=== PATIENT | female | born 1955 | race Caucasian/White ===

== ENCOUNTER 2017-03-09 09:24 | Inpatient (IN) | payer MEDICARE, MEDICAID ==
[~2017-03-09] VITALS: Ht 154.9 cm; Wt 65.6 kg
--- OUTSIDE RECORDS SUMMARY | ~2017-03-09 | XMS | Clinical Summary ---
Demographics + + + | Address | [address] | | | [place] [address] | + + + | Home Phone | | + + + | Preferred Language | Unknown | + + + | Marital Status | | + + + | Rastafari Affiliation | Unknown | + + + | Race | White | + + + | Ethnic Group | Not or | + + + Author + + + | Author | [facility] | + + + | Organization | [facility] | + + + | Address | Unknown | + + + | Phone | Unavailable | + + + Support +------+ +---------+ + | Name | Relationship | Address | Phone | +------+ +---------+ + ECON | Unknown | | +------+ +---------+ + Care Team Providers + +------+-------+ | Care Grocery Department Manager Name | Role | Phone | + +------+-------+ | Dipak Rabago MD | PP | tel | + +------+-------+ Source Comments SARAHY is fully live on both [facility] and [facility]Patient.[facility] Allergies No Known Allergies Current Medications + + +---------+---------+------+------+-------+ | Prescription | Sig. | Disp. | Refills | Star | End | Statu | | | | | | t | Date | s | | | | | | Date | | | + + +---------+---------+------+------+-------+ | estradiol 2 mg | Take 2 mg by mouth | | | | | Activ | | Oral Tablet | once daily. | | | | | e | + + +---------+---------+------+------+-------+ | FLUoxetine 20 mg | Take 20 mg by mouth | | | | | Activ | | Oral | once daily. | | | | | e | | TabletIndications: | Indications: | | | | | | | depression | Depression | | | | | | + + +---------+---------+------+------+-------+ | furosemide 40 mg | Take 40 mg by mouth | | | | | Activ | | Oral Tablet | once daily. | | | | | e | + + +---------+---------+------+------+-------+ | lisinopril 20 mg | Take 20 mg by mouth | | | | | Activ | | Oral | once daily. | | | | | e | | TabletIndications: | Indications: | | | | | | | hypertension | Hypertension | | | | | | + + +---------+---------+------+------+-------+ | pravastatin 20 mg | Take 20 mg by mouth | | | | | Activ | | Oral Tablet | once daily at | | | | | e | | | bedtime. | | | | | | + + +---------+---------+------+------+-------+ | traZODone 100 mg | Take 100 mg by mouth | | | | | Activ | | Oral | once daily at | | | | | e | | TabletIndications: | bedtime. | | | | | | | Insomnia | Indications: | | | | | | | | Insomnia | | | | | | + + +---------+---------+------+------+-------+ | oxyCODONE, | Take 5 mg by mouth | | | | | Activ | | immediate release, 5 | every six hours as | | | | | e | | mg Oral | needed. | | | | | | | TabletIndications: | Indications: Pain | | | | | | | Pain | | | | | | | + + +---------+---------+------+------+-------+ | carvedilol 6.25 mg | Take 6.25 mg by | | | | | Activ | | Oral Tablet | mouth two times | | | | | e | | | daily. Administer | | | | | | | | with food. | | | | | | + + +---------+---------+------+------+-------+ | FLAXSEED OIL | Take 2,000 mg by | | | | | Activ | | (OMEGA 3 ORAL) | mouth once daily. | | | | | e | + + +---------+---------+------+------+-------+ | niacin ER | Take 500 mg by mouth | | | | | Activ | | (SLO-NIACIN) 500 mg | once daily at | | | | | e | | Oral Tablet Extended | bedtime. | | | | | | | Release 24 hr | | | | | | | + + +---------+---------+------+------+-------+ | VITAMIN B COMPLEX | Take 2,000 mg by | | | | | Activ | | (B-COMPLEX W/B-12 | mouth once daily. | | | | | e | | OR) | | | | | | | + + +---------+---------+------+------+-------+ | diazepam 2 mg Oral | Take 1 tablet by | 1 Tab | 0 | 02/2 | | Activ | | Tablet | mouth before MRI | | | 8/20 | | e | | | | | | 12 | | | + + +---------+---------+------+------+-------+ Active Problems + + + | Problem | Noted Date | + + + | Lumbago | 05/04/2011 | + + + | Lumbosacral spondylosis without myelopathy | 05/04/2011 | + + + Family History + + +------+ + | Medical History | Relation | Name | Comments | + + +------+ + | Cancer | Father | | | + + +------+ + | Cancer | Grandmoth | | | | | er | | | + + +------+ + | Cancer | Maternal | | | | | Grandmoth | | | | | er | | | + + +------+ + | Cancer | Mother | | | + + +------+ + + +------+ + + | Relation | Name | Status | Comments | + +------+ + + | Father | | Alive | | + +------+ + + | Grandmother | | | | + +------+ + + | Maternal Grandmother | | | | + +------+ + + | Mother | | | | + +------+ + + Social History + +-------+ +--------+------+ | Tobacco Use | Types | Packs/Day | Years | Date | | | | | Used | | + +-------+ +--------+------+ | Former Smoker | | | | | + +-------+ +--------+------+ + +---+---+ + | Smokeless Tobacco: | | | Quit: | | Former User | | | 05/04/19 | | | | | 05 | + +---+---+ + + + +---------+ + | Alcohol Use | Drinks/We | oz/Week | Comments | | | ek | | | + + +---------+ + | Yes | 3 | 1.5 | drinks socially | | | Standard | | | | | drinks or | | | | | | | | | | equivalen | | | | | t | | | + + +---------+ + + + + | Sex Assigned at | Date Recorded | | | | + + + | Not on file | | + + + Last Filed Vital Signs + + + + | Vital Sign | Reading | Time Taken | + + + + | Blood Pressure | 132/93 | 05/04/2011 1:06 PM PST | + + + + | Pulse | 75 | 05/04/2011 1:06 PM PST | + + + + | Temperature | 36.7 C (98 F) | 05/04/2011 1:06 PM PST | + + + + | Respiratory Rate | - | - | + + + + | Oxygen Saturation | - | - | + + + + | Inhaled Oxygen | - | - | | Concentration | | | + + + + | Weight | 67.6 kg (149 lb) | 05/04/2011 1:06 PM PST | + + + + | Height | 154.9 cm (5' 1") | 05/04/2011 1:06 PM PST | + + + + | Body Mass Index | 28.15 | 05/04/2011 1:06 PM PST | + + + + Plan of Treatment + + + + + | Health Maintenance | Due Date | Last Done | Comments | + + + + + | INFLUENZA VACCINE | | | | | (FLU SHOT) | 7 | | | + + + + + Results Not on filefrom Last 3 Months
--- OUTSIDE RECORDS SUMMARY | ~2017-03-09 | XMS | Clinical Summary ---
Demographics + + + | Address | [address] | | | [place] [address] | + + + | Home Phone | | + + + | Preferred Language | Unknown | + + + | Marital Status | | + + + | Latter-Day Affiliation | Unknown | + + + | Race | White | + + + | Ethnic Group | Not or | + + + Author + + + | Author | [facility] | + + + | Organization | [facility] | + + + | Address | Unknown | + + + | Phone | Unavailable | + + + Support +------+ +---------+ + | Name | Relationship | Address | Phone | +------+ +---------+ + ECON | Unknown | | +------+ +---------+ + Care Team Providers + +------+-------+ | Care Pediatric Surgeon Name | Role | Phone | + +------+-------+ | Dipak Rabago MD | PP | tel | + +------+-------+ Source Comments SARAHY is fully live on both [facility] and [facility] InPatient.[facility] Allergies No Known Allergies Current Medications [...]
[2017-03-09] MEDS ORDERED: FUROSEMIDE40 MG PO (09:47)
[2017-03-09] MEDS ORDERED: LISINOPRIL40 MG PO (09:47)
[2017-03-09] MEDS ORDERED: ESTRADIOL2 MG PO (09:47)
[2017-03-09] MEDS ORDERED: AMLODIPINE BESYL5 MG PO (09:47)
[2017-03-09] MEDS ORDERED: CARVEDILOL12.5 MG PO (09:47)
[2017-03-09] MEDS ORDERED: TRAZODONE HCL100 MG PO (09:48)
[2017-03-09] MEDS ORDERED: ZITHROMAX250 MG PO (10:58)
--- NOTE | 2017-03-09 13:40 | NUR ---
PT RESTING IN BED AWAKE, ALERT AND ORIENTED. REPORTS MILD PAIN WITH DEEP BREATH, AND SOME SOB. REPORTS ONLY OCC DRY COUGH. PT SATTING 96% ON RA. NO EDEMA NOTED. IV INFUSING WNL. ORIENTED TO ROOM, EDUCATION COMPELTED. CALL LIGHT WITHIN REACH.
[2017-03-09] MEDS ORDERED: FLUOXETINE HCL40 MG PO (16:13)
--- NOTE | 2017-03-09 16:16 | NUR ---
Medications reconciled by pharmacist using pharmacy fill records and patient interview.
--- NOTE | 2017-03-09 16:30 | NUR ---
PT RESTING QUIETLY IN BED, EYES CLOSED, RESP EVEN AND UNLABORED.
--- NOTE | 2017-03-09 17:33 | NUR ---
PATIENT SITTING UP IN BED EATING DINNER NO OTHER NEEDS AT THIS TIME.
--- NOTE | 2017-03-09 18:14 | NUR ---
PT SITTING UP IN BED WATCHING TV. ATE SOME DINNER, DANIEL WELL SO FAR. SATTING 94% ON RA. CALL LIGHT WITHIN REACH.
--- NOTE | 2017-03-09 18:46 | NUR ---
PATIENT UP TO BATHROOM WITH STANDBY ASSIST.
--- NOTE | 2017-03-09 19:27 | NUR ---
RECEIVED REPORT FROM RN. PATIENT IS RESTING COMFORTABLY IN BED, BREATHING IS EVEN AND UNLABORED. O2 SATURATION IS 92% ON ROOM AIR, PULSE IS 78. DENIES NEEDS AT THIS TIME. CALL LIGHT WITHIN REACH.
--- NOTE | 2017-03-09 20:09 | NUR ---
PATIENT RESTING COMFORTABLY IN BED, BREATHING IS EVEN AND UNLABORED. DENIES NEEDS AT THIS TIME. ASSESSMENT DONE, BLOOD SUGAR DONE. 02 SATURATION IS 93% ON RA. CALL LIGHT WITHIN REACH.
--- NOTE | 2017-03-09 20:12 | NUR ---
VITALS AND I&OS DONE. FRESH WATER GIVEN. CALL LIGHT AND BEDSIDE TABLE WITHIN REACH. PT NEEDS NOTHING AT THIS TIME.
--- NOTE | 2017-03-10 00:47 | NUR ---
PATIENT RESTING COMFORTABLY IN BED, BREATHING IS EVEN AND UNLABORED. O2 SATURATION IS 91% ON ROOM AIR. DENIES NEEDS AT THIS TIME. CALL LIGHT WITHIN REACH.
--- NOTE | 2017-03-10 02:01 | NUR ---
VITALS AND I&OS DONE. HELPED HER TO THE BATHROOM, AND BACK TO HER BED. PER HER REQUEST I GOT HER A SECOND PILLOW. ASKED IF SHE NEEDED ANYTHING ELSE AT THIS TIME. SHE SAID NO. CALL LIGHT ON HER BED NEXT TO HER AND BEDSIDE TABLE WITHIN REACH.
--- NOTE | 2017-03-10 03:13 | NUR ---
PATIENT SITTING ON EDGE OF BED, BREATHING EVEN AND UNLABORED. O2 SATURATION IS 92% ON ROOM AIR. PATIENT REPORTS 8/10 PAIN IN LOWER BACK. PRN TYLENOL GIVEN PER EMAR, GAVE PATIENT HEAT PACK. DENIES FURTHER NEEDS. ASSESSMENT DONE. CALL LIGHT WITHIN REACH.
--- NOTE | 2017-03-10 05:26 | NUR ---
PATIENT RESTING COMFORTABLY IN BED, BREATHING IS EVEN AND UNLABORED. O2 SATURATOIN IS 92% ON ROOM AIR, PULSE IS 88. FLACC SCORE OF 0. CALL LIGHT WITHIN REACH.
--- NOTE | 2017-03-10 05:29 | NUR ---
PATIENT'S NIGHT WAS UNEVENTFUL. SHE HAS BEEN RESTING COMFORTABLY IN BED THROUGHOUT SHIFT. VSS, URINE OUTPUT QS. COMPLAINED OF BACK PAIN EARLIER, RELIEVED BY TYLENOL AND HEAT PACK. ALERT AND ORIENTED X3, HAS CRACKLES IN BASES OF LUNGS BILATERALLY, MAINTAINS O2 SATURATION >90% ON ROOM AIR. PATIENT IS INDEPENDENT IN ROOM, HAS IV FLUIDS RUNNING. NO ACUTE CHANGES FROM BEGINNING OF SHIFT.
--- NOTE | 2017-03-10 06:39 | NUR ---
RECEIVED CALL FROM LAB REPORTING CRITICAL LAB VALUE OF 10 FOR CO2.
--- NOTE | 2017-03-10 06:40 | NUR ---
DR. FAUST NOTIFIED ABOUT CRITICAL LAB VALUE OF 10 FOR CO2. NO NEW ORDERS AT THIS TIME.
--- NOTE | 2017-03-10 07:55 | NUR ---
PATIENT REFUSED INFLUENZA VACCINE THIS AM, MEDICATION GIVEN AND MEDICAL STUDENT IN TO SEE THE PATIENT. VITALS TAKEN AND BREAKFAST GIVEN TO HER AT THIS TIME. PATIENT DENIES ANY SOB OR PAIN.
--- NOTE | 2017-03-10 08:58 | NUR ---
PATIENT ASSISTED UP TO THE BATHROOM TO VOID, PATIENT VOIDED 450 MLS OF CLEAR YELLOW URINE. SHE IS STEADY ON HER FEET JUST NEEDED ASSISTANCE WITH HER EQUIPMENT.
--- NOTE | 2017-03-10 09:30 | NUR ---
PATIENT ASSISTED TO THE BR. BREAKFAST TRAY TAKEN OUT OF ROOM. PATIENT STATING NO OTHER NEEDS AT THIS TIME.
--- NOTE | 2017-03-10 09:37 | NUR ---
PATIENT ASSISTED UP TO THE BATHROOM AGAIN, PATIENT VOIDED 500 MLS OF CLEAR YELLOW URINE AND HAD A SMALL LOOSE BM.
--- NOTE | 2017-03-10 09:50 | NUR ---
PATIENT SAID NO ON SHOWER BUT YES ON A BED BATH.
--- NOTE | 2017-03-10 10:24 | NUR ---
DOCTOR FAUST IN THE ROOM TO SEE THE PATIENT AT THIS TIME
--- NOTE | 2017-03-10 10:51 | NUR ---
PATIENT ASSISTED BACK TO BED FROM THE BATHROOM, SHE REMAINS STEADY ON HER FEET, URINE IS CLEAR YELLOW AND SHE HAD A SMALL LOOSE BM. PATIENT IS ON RA WITH NO C/O SOB WITH AMBULATION. SHE IS GOING TO TAKE A BED BATH LATER AND DENIES OTHER NEEDS AT THIS TIME
--- NOTE | 2017-03-10 11:50 | NUR ---
REPORT RECEIVED FROM CAT, ASSUMING PATIENT CARE AT THIS TIME. INTRODUCE SELF TO PATIENT. PATIENT RESTING IN BED, HAD NO COMPLAINTS AT THIS TIME.
--- NOTE | 2017-03-10 14:24 | NUR ---
PT LAYING IN BED, FRIENDLY, ALERT AND ORIENTED. WILL LET HER REST, AND CHECK IN ON PT AGAIN
--- NOTE | 2017-03-10 14:36 | NUR ---
IN TO PATIENT ROOM FOR SECOND ASSESSMENT. LUNGS ARE DIM AND TIGHT IN THE BASES. PATIENT REPORTS MILD SOB, DIFFICULTY CATCHING HER BREATH. RT IN ROOM TO GIVE PRN NEB TX. WILL CONTINUE TO MONIOR.
--- NOTE | 2017-03-10 16:18 | NUR ---
PATIENT REQUESTED TYLENOL FOR HEADACH. PATIENT WAS MEDICATED. RESTING IN BED AT THIS TIME.
--- NOTE | 2017-03-10 18:22 | NUR ---
PATIENT HAD A FAIR DAY. HAD NEB TX ONCE. SOB WITH EXERTION. PATIENT HAD MULTIPLE LIQUID STOOLS. VOID Q/S. POOR APPETITE. IV SITE PATENT ANF FLUID (D51/2NS +20K) INFUSING @ 75ML/HR. LUNGS STILL COARSE AND DIM IN THE BASES. PATIENT IS ON RA AND CONT PULSE OX.
--- NOTE | 2017-03-10 20:33 | NUR ---
patient resting comfortably in bed, breathing is even and unlabored. O2 saturation is 93% on room air, pulse is 92. denies needs at this time. medications given, assessment done. call light within reach.
--- NOTE | 2017-03-10 21:08 | NUR ---
VITALS AND I&OS DONE. GOT PT MORE ICE FOR HER DRINK. AND FILLED HER WATER. PT NEEDS NOTHING ELSE AT THIS TIME. CALL LIGHT AND BEDSIDE TABLE WITHIN REACH.
--- NOTE | 2017-03-10 22:19 | NUR ---
WENT INTO PTS ROOM TO PLUG BACK IN HER PULSE OX AND IV. PT NEEDS NOTHING ELSE AT THIS TIME.
--- NOTE | 2017-03-11 00:30 | NUR ---
PATIENT SITTING ON EDGE OF BED, BREATHING IS EVEN AND UNLABORED. O2 SATURATION IS 93% ON ROOM AIR. REPORTS 6/10 PAIN IN LOWER BACK, PRN TYLENOL GIVEN. DENIES FURTHER NEEDS AT THIS TIME. CALL LIGHT WITHIN REACH.
--- NOTE | 2017-03-11 01:59 | NUR ---
PATIENT RESTING COMFORTABLY IN BED, BREATHING EVEN AND UNLABORED. O2 SATURATIONS IS 92% ON ROOM AIR. CALL LIGHT WITHIN REACH.
--- NOTE | 2017-03-11 04:15 | NUR ---
PATIENT RESTING COMFORTABLY IN BED, BREATHING IS EVEN AND UNLABORED. O2 SATURATION IS 94% ON ROOM AIR. DENIES NEEDS AT THIS TIME. ASSESSMENT DONE, CALL LIGHT WITHIN REACH.
--- NOTE | 2017-03-11 06:01 | NUR ---
pt up to brp, was shaky, diaphoretic, cbg done 284. primary RN Víctor to be notified, no other s/sx of high blood sugars noted, pt alert and oriented, good , stable gait
--- NOTE | 2017-03-11 06:13 | NUR ---
PATIENT ASSISTED TO BATHROOM. WHILE AMBULATING, PATIENT BECOMES SHORT OF BREATH. ONCE BACK IN BED, BREATHING QUICKLY BECOMES UNLABORED. O2 SATURATION IS 93% ON ROOM AIR, PULSE IS 99. DENIES NEEDS AT THIS TIME. PATIENT STATES "I FEEL FINE." CALL LIGHT WITHIN REACH.
--- NOTE | 2017-03-11 07:21 | NUR ---
BEDSIDE REPORT RECEIVED FROM JEREMY. PATIENT ASLEEP DURING REPORT. RR EVEN/UNLABORED, HR 80-85 AND 02 SAT 96% ON RA. NO APPARENT DISTRESS.
--- NOTE | 2017-03-11 09:10 | NUR ---
ASSISTED PATIENT TO SIT AT BEDSIDE. BREAKFAST TRAY SET UP. PATIENT REPORT NO PAIN, SOB OR NAUSEA. STILL HAVE POOR APPETITE. MED STUDENT IN ROOM. PATIENT EXPRESSED INTEREST TO GO HOME TODAY. COUGH HAS DECREASED. SHIFT ASSESSMENT COMPLETED. LUNGS DIM IN THE BASES. PATIENT REPORT TENDERNESS ON THE UPPER EPIGASTRIC REGION. PATIENT SITTING IN BED AT THIS TIME EATING BREAKFAST. CALL LIGHT AND PERSONAL BELONGING WITHIN REACH.
--- NOTE | 2017-03-11 11:37 | NUR ---
PATIENT UP AMBULATING IN THE HALLWAY WITH PHYSICAL THERAPIST.
--- NOTE | 2017-03-11 11:59 | NUR ---
PATIENT SITTING AT BEDSIDE EATING LUNCH. PATIENT DENIES PAIN. TOLERATED AMBULATION WELL EXCEPT THAT PATIENT REPORTED THAT SHE WAS HAVE A LITTLE BIT OF HARD TIME CATCHING HER BREATH. PATIENT IS IN NO DISTRESS, O2 SAT @ 92% TO 95% ON RA. WILL CONTINUE TO MONITOR
[2017-03-11] MEDS ORDERED: LEVOFLOXACIN750 MG PO (14:41)
[2017-03-11] MEDS ORDERED: SODIUM BICARBO650 MG PO (14:43)
--- NOTE | 2017-03-11 22:39 | EKG ---
[facility] [address] [place] [address] Signed Normal sinus rhythm Cannot rule out Anterior infarct , age undetermined Abnormal ECG No previous ECGs available Confirmed by JOANNE SHELTON MD ([id number]) on 03/11/2017 10:39:06 PM Electronically Signed By: JOANNE SHELTON MD 03/11/17 2239 PATIENT NAME: CHEIKH BLACKOLIVIA FALCON Electrocardiogram DATE OF : 55 PHYSICIAN: JOANNE SHELTON MD REPORT #: [id number] REPORT IS CONFIDENTIAL AND NOT TO BE RELEASED WITHOUT AUTHORIZATION
== END 2017-03-11 15:20 | disposition home or self-care (01) | DRG 194 ==
LOC: ED 09:24 → MS 12:42
PROVIDERS: ADMIT Internal Medicine
DX: J13 Pneumonia due to Streptococcus pneumoniae (principal); E87.2 Acidosis; R19.7 Diarrhea, unspecified; I11.0 Hypertensive heart disease with heart failure; I50.9 Heart failure, unspecified; K76.0 Fatty (change of) liver, not elsewhere classified; F39 Unspecified mood [affective] disorder; Z87.891 Personal history of nicotine dependence; Z88.0 Allergy status to penicillin; Z79.890 Hormone replacement therapy; Z79.899 Other long term (current) drug therapy
CPT/HCPCS: 36415; 36600; 71046; 80048; 80053; 80069; 80176; 81001; 82010; 82803; 83605; 83735; 83880; 84100; 84484; 85025; 87040; 87502; 93005; 93010; 94640; 97161; G0480; J0456; J0696; J1650; J1956; J2405; J2550; J3480; J7030

== ENCOUNTER 2020-10-22 11:01 | Day surgery (SDC) | payer MEDICARE, MEDICAID ==
[~2020-10-22] VITALS: Ht 154.9 cm; Wt 56.8 kg
[~2020-10-22 11:01] MED LIST: AMLODIPINE BESYL5 MG PO; CARVEDILOL12.5 MG PO; ESTRADIOL2 MG PO; FLUOXETINE HCL40 MG PO; FUROSEMIDE40 MG PO; LEVOFLOXACIN750 MG PO; LISINOPRIL40 MG PO; SODIUM BICARBO650 MG PO; TRAZODONE HCL100 MG PO; ZITHROMAX250 MG PO
[2020-10-22] MEDS ORDERED: MULTIVITAMIN1 EACH PO (11:31)
[2020-10-22] MEDS ORDERED: PRESERVISION A1 EAC3 PO (11:32)
[2020-10-22] MEDS ORDERED: PROAIR HFA8.5 GM INH (11:32)
[2020-10-22] MEDS ORDERED: ZESTRIL40 MG PO (11:33)
[2020-10-22] MEDS ORDERED: FUROSEMIDE40 MG PO (11:34)
[2020-10-22] MEDS ORDERED: FLUOXETINE HCL40 MG PO (11:34)
[2020-10-22] MEDS ORDERED: CARVEDILOL12.5 MG PO (11:35)
[2020-10-22] MEDS ORDERED: NORVASC5 MG PO (11:35)
[2020-10-22] MEDS ORDERED: XANAX0.5 MG PO (11:37)
[2020-10-22] MEDS ORDERED: OZEMPIC1 MG/0.75 SUB-Q (11:49)
--- NOTE | 2020-10-22 13:15 | NUR ---
10/22/20 1315 [address] 1222 PT ARRIVED TO PACU ON 3L VIA NC. PT PRONE AND DENIES CONERNS. VSS. PLAN OF CARE DISCUSSED. [id number] PT ROLLED TO BACK AND SIPPING JUICE PER REQUEST, DC INSTRUCTIONS GIVEN AND PT GETTING DRESSED. FRIEND CALLED FOR RIDE HOME. PAPERWORK GIVEN AND VSS.
--- NOTE | 2020-11-05 09:14 | PATH ---
[facility] [address] [place], [place] [address] Signed THIS IS AN ADDENDUM REPORT SPECIMEN(S): A BONE MARROW - CORE SPECIMEN(S): B BONE MARROW - ASPIRATION SPECIMEN(S): C FLOW CYTOMETRY, BM EDTA ASP CLINICAL HISTORY: Chronic leukocytosis and thrombocytosis. D47.1 (chronic myeloproliferative disease) DIAGNOSIS SUMMARY: A. Peripheral blood - Mild leukocytosis and thrombocythemia. - No circulating blasts identified. B. Bone marrow aspiration and biopsy: - Normocellular marrow, 40%, with less than 1% blasts. - Trilineage hematopoiesis with no significant dyspoiesis. - No malignancy identified. - Increased marrow iron stores. No ring sideroblasts are identified. - Focal reticulin fibrosis, grade 0-1+. - See Diagnostic Comment. DIAGNOSTIC COMMENT: The patient's history of mild leukocytosis and thrombocythemia is noted. Overall, based on morphology, a reactive process is favored. No myeloproliferative neoplasm is identified by morphology. Because of the history of chronic leukocytosis and thrombocythemia, tests for BCR/ABL1 and JAK2 (with exon 12 reflex) as well as chromosome analysis are requested, and the results will be reported in an addendum. If clinically desired, tests for CALR and MPL can be requested. Reactive etiologies for leukocytosis and mild thrombocythemia should be excluded, such as drug effect, chronic infection, liver disorder, autoimmune or splenomegaly. JLP:C2NR HISTORICAL SUMMARY: 65-year-old with no prior hematologic history in [facility]. Patient has a reported history of mild unexplained leukopenia and thrombocythemia since 2016. 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 This bone marrow is to evaluate these findings. PATIENT NAME: OLIVIA DAMON PATHOLOGY DATE OF : 55 REPORT #: [id number] PHYSICIAN: STEPHANIE PATHOLOGY PCP: JOSE MELGAR PA-C REPORT IS CONFIDENTIAL AND NOT TO BE RELEASED WITHOUT AUTHORIZATION [facility] [address] [place], [place] [address] Signed PERIPHERAL BLOOD: HEMOGRAM (10/22/2020): WBC 13.4 K/ul, RBC 4.44 M/ul, HGB 13.1 g/dl, HCT 40.1%, MCV 90.2 fl, MCH 29.5 pg, MCHC 32.7 g/dl, RDW 14.6%, PLT 453 K/ul, MPV 8.1 fl. AUTOMATED DIFFERENTIAL COUNT: Neutrophils 60.4%, lymphocytes 28.5%, monocytes 5.8%, eosinophils 4.5%, basophils 0.8%. The red blood cells are normocytic and normochromic with minimal anisopoikilocytosis. The neutrophils are unremarkable. Lymphocytes are composed of small mature appearing forms. Platelets appear mildly increased in number with no platelet clumping or RBC microangiopathic effect identified. No blasts are identified. BONE MARROW: ASPIRATE SMEARS/TOUCH IMPRINT: The aspirate smears are adequate for evaluation. Scattered erythroid precursors show adequate maturation with essentially normal morphology. The myeloid precursors show full maturation with unremarkable morphology. There is no increase in blasts. Megakaryocytes are identified with a normal morphology. BONE MARROW DIFFERENTIAL COUNT (300 cells): Blasts less than 1%, promyelocytes 2%, myelocytes 3%, metamyelocytes/bands/segs 48%, erythroid precursors 32%, lymphocytes 9%, monocytes 3%, eosinophils 3%, plasma cells less than 1%. M:E ratio: 1.8:1 BONE MARROW CORE BIOPSY/ASPIRATE CLOT/CELL BLOCK: The aspirate clot section and the core biopsy are adequate for evaluation. The core biopsy demonstrates unremarkable trabecular bone. The cellularity is normal for age, estimated at 40%. The erythroid precursors are within normal limits with essentially unremarkable maturation. The myeloid precursors are unremarkable with no significant dyspoiesis. Blasts are not increased. Megakaryocytes appear normal in number and in morphology. No granulomas, atypical lymphoid aggregates or foreign malignant cells are detected. SPECIAL STAINS (with adequate controls): - iron (aspirate smear): Increased marrow iron stores by Prussian Blue stain. No ring sideroblasts are identified. - iron (aspirate clot): Positive for iron - reticulin (block A1): Focal reticulin fibrosis, grade 0-1+ FLOW CYTOMETRY: Bone marrow, flow cytometry: - No abnormal diagnostic populations are identified by flow cytometry. - See Comment. PATIENT NAME: OLIVIA DAMON PATHOLOGY DATE OF : 55 REPORT #: [id number] PHYSICIAN: STEPHANIE PATHOLOGY PCP: JOSE MELGAR PA-C REPORT IS CONFIDENTIAL AND NOT TO BE RELEASED WITHOUT AUTHORIZATION [facility] [address] [place] [id number] Signed COMMENT: The majority of the gated lymphocytes are T-cells with a normal marking pattern. The B-cells are unremarkable with no light chain restriction or aberrant marking. Blasts are not increased. No aberrant marking is detected in the myeloid or monocyte gate areas. Plasma cells are not increased. Correlation with histologic findings is suggested to exclude disorders that can have normal flow cytometry findings. FLOW CYTOMETRY ANALYSIS: FLOW DIFFERENTIAL (% Total CD45 vs. SSC gating): Myeloid 71%; Lymphoid 18%; Monocyte 3%; Dim CD45/Blast: 1.6%. Cell Count: 1.0 x 10*3/uL. POPULATION ANALYSIS: BLASTS: Analysis of the dim CD45 gate demonstrates 1.6% myeloblasts by CD34/CD117. LYMPHOID CELLS: The lymphocyte gate comprises 18% of total events and includes 90% T-cells with a CD4:CD8 ratio of 1.2:1 and normal brown T-cell antigen expression. 6% of lymphocytes are polyclonal B-cells with a kappa:lambda ratio of 1.5:1. The remainders are NK-cells. MYELOID CELLS: The myeloid population comprises 71% of the total events. No aberrant or immature immunophenotypic expression is detected. MONOCYTES: The monocyte population comprises 3% of the total events. Monocytes are not increased. No aberrant immunophenotypic expression is detected. PLASMA CELLS: 0.4% plasma cells are detected in the screening gate neg-dimCD45/CD38. Plasma cells are CD45 dim and positive for CD19. ANTIBODIES USED: KAPPA, LAMBDA, CD20, CD10, CD19, CD23, CD38, FMC7, CD16, CD56, CD8, CD5, CD2, CD4, CD7, CD3, CD14, CD33, CD13, HLADR, CD34, CD117, CD15, CD45: TOTAL ANTIBODIES USED: 24. TCS FINAL DIAGNOSIS PERFORMED BY: Arnol Watts MD, Oct 23 2020 11:35AM CYTOGENETICS: Chromosome analysis is pending and the results will be reported in an addendum. FISH ANALYSIS: A FISH probe for BCR/ABL1 is pending and the results will be reported in an addendum. MOLECULAR / PCR: A molecular test for ROMAN 2 with ROMAN 2 exon reflex testing is pending and PATIENT NAME: OLIVIA DAMON PATHOLOGY DATE OF : 55 REPORT #: [id number] PHYSICIAN: STEPHANIE PATHOLOGY PCP: JOSE MELGAR PA-C REPORT IS CONFIDENTIAL AND NOT TO BE RELEASED WITHOUT AUTHORIZATION [facility] [address] [place], [place] [address] Signed the results will be reported in an addendum. GROSS DESCRIPTION: Two specimens are received in two containers, labeled "LN." A. The specimen, labeled "LN, core," is received in formalin and consists of one cylindrical bone core fragment measuring 0.2 in diameter and 2.2 in length. The specimen is entirely submitted in cassette A1 following decalcification in Immunocal. B. The specimen, labeled "LN clot," is received in formalin and consists of thickened clot material measuring 2.0 x 1.7 x 0.6 in aggregate. The specimen is filtered and entirely submitted in cassette B1. Bone marrow inventory also includes: Two peripheral smears, one EDTA tube bone marrow, and two heparin tubes. AT (under the direct supervision of a pathologist) The Gross Description was prepared using a voice recognition system. The report was reviewed for accuracy; however, sound-alike word errors, addition and/or deletions may occur. If there is any question about this report, please contact Client Services. ADDITIONAL NOTES: This test was developed and its performance characteristics determined by [facility]. It has not been cleared or approved by the US Food and Drug Administration. The FDA does not require this test to go through premarket FDA review. This test is used for clinical purposes. It should not be regarded as investigational or for research. This laboratory is certified under the Clinical Laboratory Improvement Amendments (CLIA) as qualified to perform high complexity clinical laboratory testing. PERFORMING LABORATORY: The technical component was performed by [facility], [address] [place] [address] (Correctional Corporal: Itz Weiss D.O.; CLIA#: [id number]). Professional interpretation [place] [address]. The technical component was performed by [facility], [address] [place] [address] (Correctional Corporal: Romelia Monk MD; CLIA# [id number]). Professional interpretation [place] [address]. IMAGES: PATIENT NAME: OLIVIA DAMON PATHOLOGY DATE OF : 55 REPORT #: [id number] PHYSICIAN: STEPHANIE DE SOUZA PCP: JOSE MELGAR PA-C REPORT IS CONFIDENTIAL AND NOT TO BE RELEASED WITHOUT AUTHORIZATION [address] [address] Signed A: [id number] A: [id number] SPECIMEN SOURCE: A. FISH Analysis, BCR/ABL FISH, BM EDTA CLINICAL HISTORY: Chronic leukocytosis and thrombocytosis. D47.1 (chronic myeloproliferative disease) FISH (fluorescence in situ hybridization) RESULT: Not Detected INTERPRETATION: BCR/ABL1 t(9;22) rearrangement: Not detected. Fluorescence in situ hybridization (FISH) analysis was performed using a tricolor, dual fusion BCR/ABL1 probe set used to detect the(9;22) translocation associated with CML and less commonly ALL or AML. The tri color probe set also detects derivative chromosome 9 deletions. All probe signals were within the normal reference range. This represents a NORMAL result. This analysis is limited to abnormalities detectable by the specific probes includes in the study. FISH should be interpreted within the context of a full cytogenetic analysis and hematologic evaluation. ISCN: Probe Set Detail: BCR/ABL1/ASS1 t(9;22): nuc óscar 9q34(ASS1, ABL1)x2,22q11.2(BCRx2)[200] References: [place] of Genetics and Cytogenetics in Oncology and Hematology [email or web address]/ FISH Analysis Summary: Nuclei Scored: 200 Scoring Method: Manual; CPT Code 08372 Number of Probe units: 1 Multiplex Cells analyzed: Interphase Probe sets: Chrom 9: ABL1, Chrom 9: ASS1, Chrom 22: BCR ADDITIONAL NOTES: This test was developed and its performance characteristics determined by [facility] It has not been cleared or approved by the US Food and Drug Administration. The [employer] DNA probe vendor for this study was [employer]. PATIENT NAME: OLIVIA DAMON PATHOLOGY DATE OF : 55 REPORT #: [id number] PHYSICIAN: STEPHANIE PATHOLOGY PCP: JOSE MELGAR PA-C REPORT IS CONFIDENTIAL AND NOT TO BE RELEASED WITHOUT AUTHORIZATION [facility] [address] [facility] [place], [place] [address] Signed PERFORMING LABORATORY: The technical component of the FISH testing was performed by [facility], [address] [address] (Correctional Corporal: Itz Weiss D.O.; CLIA#: [id number]). Professional interpretation was performed by [facility], [place] [address] (Correctional Corporal: Itz Weiss D.O.; CLIA#: [id number]). FINAL DIAGNOSIS PERFORMED BY: Shaji Cruz MD, Pathologist Oct 27 2020 4:40PM REASON FOR ADDENDUM: To add results of additional testing. To add results of additional testing. Bone marrow aspirate, JCK2 V617F mutation analysis - Qualitative: Results: JAK2 V617F Mutation: Not Detected Clinical Significance: The JAK2 V617F mutation has been reported in >80% of the patients with polycythemia vera (PV), 30-50% of patients with either essential thrombocythemia (ET) or primary myelofibrosis (PMF). This mutation is not detected in normal individuals. A small subset of patients with myeloproliferative neoplasms (MPN) that are negative for the JAK2 V617F mutation will harbor JAK2 mutations in exon 12. More rare mutations are detected in exons 13 and 14. JAK2 mutations can be used to differentiate reactive conditions from neoplastic process. Methodology: Total nucleic acid was extracted from patient's plasma or PB/BM cells. The primer pair was designed to encompass the JAK2 V617F point mutation located in chromosome 9p24. The PCR product was then purified and sequenced in both forward and reverse directions using high-sensitivity [place] sequencing which improves the lower detection limit to approximately 1% mutated DNA in a wild-type background. The resulting sequence was compared to GenBank Acc# [id number] sequence. Various factors including quantity and quality of nucleic acid, sample preparation and sample age can affect assay performance. References: 1. Khai Muñiz et al. A unique clonal JAK2 mutation leading to constitutive signaling causes polycythaemia vera. Nature. 2005; 434:1144-8. 2. Floresita Salas et al. A ufhz-dr-kohyhgly mutation of JAK2 in myeloproliferative disorders. N Engl J Med. 2005; 352:1779-90. PATIENT NAME: OLIVIA DAMON PATHOLOGY DATE OF : 55 REPORT #: [id number] PHYSICIAN: STEPHANIE PATHOLOGY PCP: JOSE MELGAR PA-C REPORT IS CONFIDENTIAL AND NOT TO BE RELEASED WITHOUT AUTHORIZATION [address] [address] Signed 3. Isai MAURER, Stephanie E, Tyrel P, et al; MPD Research Consortium. Prospective identification of high-risk polycythemia vera patients based on JAK2(V617F) allele burden. Leukemia. 2007;21(9):1952-9. PMID: [id number]. Test/Panel: JAK2 V617F Mutation Analysis - Qualitative MolDX/AMA CPT: 33577; 17467 The Technical Component Processing, Analysis and Professional Component of this test was completed at [facility], [address] [place] [address], [place], [place] / [address] / [phone] / BARBER #[id number] / Correctional Corporal(s): Corona Mcnulty M.D. (Accession/CaseNo: [id number]) The performance characteristics of this test have been determined by [facility]. This test has not been approved by the FDA. The FDA has determined such clearance or approval is not necessary. This laboratory is CLIA certified to perform high complexity clinical testing. Images that may be included within this report are passenger relations representative of the patient but not all testing in its entirety and should not be used to render a result. The CPT codes provided with our test descriptions are based on MolDX and AMA guidelines and are for informational purposes only. Correct CPT coding is the sole responsibility of the billing constitution party. Please direct any questions regarding coding to the payer being billed To add results of additional testing. Bone marrow aspirate, chromosome analysis: Karyotype: 46,XX[20] Interpretation: NORMAL FEMALE KARYOTYPE Cytogenetic analysis shows a normal female karyotype in all cells analyzed. Recommendation: This result should be interpreted in conjunction with other concurrent FISH, immunophenotypic, molecular and clinical findings. Periodic monitoring by flow, cytogenetics, FISH and molecular studies is recommended. Comments: Standard cytogenetic analysis may not detect subtle submicroscopic rearrangements and may not include metaphases from abnormal cell populations with low mitotic rates or present in low levels. Test Detail: Metaphases Counted: 20 PATIENT NAME: OLIVIA DAMON PATHOLOGY DATE OF : 55 REPORT #: [id number] PHYSICIAN: STEPHANIE PATHOLOGY PCP: JOSE MELGAR PA-C REPORT IS CONFIDENTIAL AND NOT TO BE RELEASED WITHOUT AUTHORIZATION [facility] [address] [place], [place] [address] Signed Metaphases Analyzed: 20 Metaphases Karyotyped: 2 Culture Type: 48EB Banding Technique: GTG Banding Resolution: 400 CPT Codes: 96621, 16977*, 624[address] *Professional interpretation service generally billed directly to carriers by [facility]. The Technical Component Processing, Analysis and Professional Component of this test was completed at [facility], [address] [place] [address], [place] / [address] / [phone] / CLIA #[id number] / Correctional Corporal(s): Corona Mcnulty M.D. (Accession/CaseNo: [id number]) The performance characteristics of this test have been determined by the performing laboratory. This test has not been approved by the FDA. The FDA has determined such clearance or approval is not necessary. This laboratory is CLIA certified to perform high complexity clinical testing. Images that may be included within this report are passenger relations representative of the patient but not all testing in its entirety and should not be used to render a result. The CPT codes provided with our test descriptions are based on AMA guidelines and are for informational purposes only. Correct CPT coding is the sole responsibility of the billing constitution party. Please direct any questions regarding coding to the payer being billed. Diagnostician: Shaji Cruz MD Pathologist Diagnostician: Arnol Watts MD Pathologist Electronically Signed 11/05/2020 Copies: ~ PATIENT NAME: OLIVIA DAMON PATHOLOGY DATE OF : 55 REPORT #: [id number] PHYSICIAN: STEPHANIE DE SOUZA PCP: JOSE MELGAR PA-C REPORT IS CONFIDENTIAL AND NOT TO BE RELEASED WITHOUT AUTHORIZATION
== END 2020-10-22 12:54 | disposition home or self-care (01) ==
LOC: OPS 11:01 → DS 11:02 → OPS 12:00
PROVIDERS: ATTEND Specialist
PROC: 07DR3ZX Extraction of Iliac Bone Marrow, Percutaneous Approach, Diagnostic (ICD-10-PCS; principal; 2020-10-22 12:00)
DX: D47.1 Chronic myeloproliferative disease (principal); I13.0 Hypertensive heart and chronic kidney disease with heart failure and stage 1 through stage 4 chronic kidney disease, or unspecified chronic kidney disease; E11.22 Type 2 diabetes mellitus with diabetic chronic kidney disease; N18.31 Chronic kidney disease, stage 3a; N18.32 Chronic kidney disease, stage 3b; I50.9 Heart failure, unspecified; E78.1 Pure hyperglyceridemia; E24.9 Cushing's syndrome, unspecified; Z87.891 Personal history of nicotine dependence
CPT/HCPCS: 88184; 88185; 88305; 88311; 88313; 88377; G0500; J2250; J3010; J7121

== ENCOUNTER 2021-01-23 15:12 | Emergency (ER) | payer MEDICARE ==
[~2021-01-23] VITALS: Ht 154.9 cm; Wt 56.7 kg
[~2021-01-23 15:12] MED LIST changes: +MULTIVITAMIN1 EACH PO; +NORVASC5 MG PO; +OZEMPIC1 MG/0.75 SUB-Q; +PRESERVISION A1 EAC3 PO; +PROAIR HFA8.5 GM INH; +XANAX0.5 MG PO; +ZESTRIL40 MG PO
[2021-01-23] MEDS ORDERED: ZITHROMAX250 MG PO (19:41)
--- NOTE | 2021-01-24 15:01 | EKG ---
[facility] [address] [facility] [place] [address] Signed Normal sinus rhythm Nonspecific ST and T wave abnormality Abnormal ECG When compared with ECG of 09-MAR-2017 09:32, ST no longer depressed in Anterior leads Nonspecific T wave abnormality now evident in Anterior leads Confirmed by JOANNE SHELTON MD ([id number]) on 01/24/2021 3:00:52 PM Electronically Signed By: JOANNE SHELTON MD 01/24/21 1501 PATIENT NAME: OLIVIA DAMON Electrocardiogram DATE OF : 55 PHYSICIAN: JOANNE SHELTON MD REPORT #: [id number] REPORT IS CONFIDENTIAL AND NOT TO BE RELEASED WITHOUT AUTHORIZATION
== END 2021-01-23 19:54 | disposition home or self-care (01) ==
LOC: ED 15:12
DX: J20.9 Acute bronchitis, unspecified (principal); I11.0 Hypertensive heart disease with heart failure; I50.9 Heart failure, unspecified; Z87.440 Personal history of urinary (tract) infections; Z87.442 Personal history of urinary calculi; Z87.891 Personal history of nicotine dependence; Z90.710 Acquired absence of both cervix and uterus; Z90.89 Acquired absence of other organs; Z88.0 Allergy status to penicillin; Z79.899 Other long term (current) drug therapy
CPT/HCPCS: 71045; 80053; 83735; 84484; 85025; 93005; 93010; 99285-25